=== PATIENT | male | born 1965 | race Hispanic/Latino ===

== ENCOUNTER 2017-02-18 12:09 | Outpatient (CLI) | payer OTHER ==
--- NOTE | 2017-02-18 16:12 | XRay Report ---
RIGHT HAND: Trauma, pain. The bony architecture is intact. Bony alignment is normal. No soft tissue abnormalities are seen. The joint spaces appear preserved. IMPRESSION: Normal right hand.
== END 2017-02-18 12:10 | disposition home or self-care (01) ==
LOC: SPVIMAG 12:09
PROVIDERS: ATTEND Family Medicine
DX: M25.541 Pain in joints of right hand (principal); Z91.81 History of falling